=== PATIENT | female | born 1955 | race Caucasian/White ===

== ENCOUNTER 2021-01-26 11:08 | Outpatient (CLI) | payer MEDICARE, MEDICAID | END 2021-01-26 11:09 | disposition home or self-care (01) | LOC: CSHMAMMO 11:08 | PROVIDERS: ATTEND Internal Medicine | DX: Z12.31 Encounter for screening mammogram for malignant neoplasm of breast (principal) | CPT/HCPCS: 77063; 77067 ==

== ENCOUNTER 2021-10-07 10:26 | Outpatient (CLI) | payer MEDICARE, OTHER | END 2021-10-07 10:27 | disposition home or self-care (01) | LOC: CSHULT 10:26 | PROVIDERS: ATTEND Internal Medicine | DX: R10.11 Right upper quadrant pain (principal) | CPT/HCPCS: 76700 ==

== ENCOUNTER 2021-12-31 12:15 | Outpatient (CLI) | payer OTHER | END 2021-12-31 12:16 | disposition home or self-care (01) | LOC: CSHRAD 12:15 | PROVIDERS: ATTEND Internal Medicine | DX: J44.1 Chronic obstructive pulmonary disease with (acute) exacerbation (principal) | CPT/HCPCS: 71046 ==

== ENCOUNTER 2022-09-01 12:20 | Outpatient (CLI) | payer OTHER, MEDICAID | END 2022-09-01 12:21 | disposition home or self-care (01) | LOC: CSHCT 12:20 | PROVIDERS: ATTEND Internal Medicine | DX: Z12.2 Encounter for screening for malignant neoplasm of respiratory organs (principal); F17.218 Nicotine dependence, cigarettes, with other nicotine-induced disorders; J44.9 Chronic obstructive pulmonary disease, unspecified | CPT/HCPCS: 71271; 94060; 94726; 94729; 94760 ==

== ENCOUNTER 2022-09-01 14:04 | Outpatient (CLI) | payer OTHER | END 2022-09-01 14:05 | disposition home or self-care (01) | LOC: CSHMAMMO 14:04 | PROVIDERS: ATTEND Internal Medicine | DX: Z12.31 Encounter for screening mammogram for malignant neoplasm of breast (principal) | CPT/HCPCS: 77063; 77067 ==

== ENCOUNTER 2023-02-23 09:46 | Day surgery (SDC) | payer OTHER, MEDICAID ==
[2023-02-22 11:24] VITALS: BMI 38.5
[2023-02-23] MEDS ORDERED: PROPOFOL 20 ML ONE ×2 (12:50→13:00)
[2023-02-23] MEDS ORDERED: Lidocaine 1% PF 5 ML VIAL ONE (12:50)
[2023-02-23] MEDS ORDERED: Ipratropium/Albuterol 3 ML NEB ONE (13:58)
== END 2023-02-23 14:48 | disposition home or self-care (01) ==
LOC: CSHSDC 09:46
PROVIDERS: ATTEND Internal Medicine Gastroenterology
PROC: 0DB68ZX Excision of Stomach, Via Natural or Artificial Opening Endoscopic, Diagnostic (ICD-10-PCS; principal; 2023-02-23)
PROC: 0DBP8ZZ Excision of Rectum, Via Natural or Artificial Opening Endoscopic (ICD-10-PCS; 2023-02-23)
PROC: 0DBN8ZZ Excision of Sigmoid Colon, Via Natural or Artificial Opening Endoscopic (ICD-10-PCS; 2023-02-23)
DX: Z12.11 Encounter for screening for malignant neoplasm of colon (principal); K62.1 Rectal polyp; K63.5 Polyp of colon; K31.89 Other diseases of stomach and duodenum; K29.80 Duodenitis without bleeding; K44.9 Diaphragmatic hernia without obstruction or gangrene; K31.A0 Gastric intestinal metaplasia, unspecified; E66.9 Obesity, unspecified; F41.9 Anxiety disorder, unspecified; F32.A Depression, unspecified; K21.9 Gastro-esophageal reflux disease without esophagitis; G47.30 Sleep apnea, unspecified; I10 Essential (primary) hypertension; E78.5 Hyperlipidemia, unspecified; E03.9 Hypothyroidism, unspecified; M54.9 Dorsalgia, unspecified; G89.29 Other chronic pain; Z79.899 Other long term (current) drug therapy
CPT/HCPCS: 88305; J2704; J7620

== ENCOUNTER 2023-05-15 | Outpatient (CLI) | payer OTHER, MEDICAID | END 2023-05-15 14:31 | disposition home or self-care (01) | DX: M54.16 Radiculopathy, lumbar region (principal) ==